=== PATIENT | male | born 1960 | race Hispanic/Latino ===

== ENCOUNTER 2016-07-20 22:11 | Emergency (ER) | payer MEDICAID ==
[2016-07-20 22:11] VITALS: BMI 25.0
[2016-07-20 22:27] VITALS: BP 138/85; PULSE 107; RESP 16; TEMP 98.2; O2SAT 100
--- NOTE | 2016-07-20 22:40 | ED PDOC ---
Lower Extremity Pain/Injury Time Seen by Provider: 07/20/16 22:31 Chief Complaint (Nursing): Lower Extremity Problem/Injury Chief Complaint (Provider): Redness/Swelling to RLE History Per: Patient History/Exam Limitations: no limitations Onset/Duration Of Symptoms: Days (x1 week), Worse Since (x2 days) Current Symptoms Are (Timing): Still Present Severity: Moderate Additional Complaint(s): landon Hudson is a 55 year old male, with a past medical history inclusive of HTN, cellulitis and osteomyelitis, who presents to the ED on 07/20/16 for the evaluation of moderate redness/swelling that he has noted to his right lower extremity x1 week which has worsened over the past 2 days. Associated drainage from an ulcer on his medial right ankle also reported, though patient denies fever/chills. PMD: Juani Sheldon Past Medical History Reviewed: Historical Data, Nursing Documentation, Vital Signs Vital Signs: Last Vital Signs Temp 98.2 F 07/20/16 22:24 Pulse 107 H 07/20/16 22:24 Resp 16 07/20/16 22:24 BP 138/85 07/20/16 22:24 Pulse Ox 100 07/20/16 22:24 - Medical History PMH: Anxiety, Back Problems (herniated disc), Bipolar Disorder, Depression, Hepatitis (C), HTN, Schizophrenia Denies: Diabetes, Fractures, HIV, Chronic Kidney Disease, Seizures, Sexually Transmitted Disease - Surgical History Surgical History: No Surg Hx - Family History Family History: States: CAD - Immunization History Hx Tetanus Toxoid Vaccination: Yes Hx Influenza Vaccination: Yes Hx Pneumococcal Vaccination: Yes - Home Medications Home Medications: Ambulatory Orders Medication Instructions Recorded Amoxicillin/Clavulanate [Augmentin 1 tab PO Q12 #19 tab 05/11/16 875 MG-125 MG] Naproxen [Naprosyn] 500 mg PO Q12 PRN #20 tablet 05/11/16 Cephalexin [cephalexin] 500 mg PO QID #28 cap 05/18/16 traMADol [Ultram] 50 mg PO Q6H PRN #8 tab 05/18/16 Clindamycin [Cleocin] 300 mg PO Q8 #30 cap 07/20/16 traMADol [Ultram] 50 mg PO Q8 #10 tab 07/20/16 - Allergies Allergies/Adverse Reactions: Allergies Allergy/AdvReac Type Severity Reaction Status Date / Time No Known Allergies Allergy Verified 07/20/16 22:24 Review of Systems ROS Statement: Except As Marked, All Systems Reviewed And Found Negative Constitutional: Negative for: Fever, Chills Musculoskeletal: Positive for: Leg Pain (redness/swelling to RLE w/drainage from ulcer on medial right ankle) Physical Exam - Reviewed Nursing Documentation Reviewed: Yes Vital Signs Reviewed: Yes - Physical Exam Appears: Positive for: Non-toxic, No Acute Distress Head Exam: Positive for: ATRAUMATIC, NORMOCEPHALIC Skin: Positive for: Normal Color, Warm, Dry Eye Exam: Positive for: Normal appearance, PERRL Cardiovascular/Chest: Positive for: Regular Rate, Rhythm. Negative for: Murmur Respiratory: Positive for: Normal Breath Sounds. Negative for: Respiratory Distress Pulses-Dorsalis Pedis (R): 2+ Pulses-Post. Tibialis (R): 2+ Extremity: Positive for: Normal ROM (FROM x4 extremities), Other (dried ulcer noted to right medial malleolus with surrounding erythema that extends to level of mid-martinez). Negative for: Deformity Neurologic/Psych: Positive for: Alert, Oriented - Laboratory Results Result Diagrams: 07/20/16 23:10 07/20/16 23:10 - ECG O2 Sat by Pulse Oximetry: 100 (RA) Pulse Ox Interpretation: Normal Medical Decision Making Medical Decision Makin:31 Initial Impression: cellulitis Initial Plan: * VBG Shock Panel * Labs * Blood Culture * Clindamycin IVPB * Reevaluation Scribe Attestation: Documented by Taya Barnett, acting as a scribe for Israel Navas MD. Provider Scribe Attestation: All medical record entries made by the Scribe were at my direction and personally dictated by me. I have reviewed the chart and agree that the record accurately reflects my personal performance of the history, physical exam, medical decision making, and the department course for this patient. I have also personally directed, reviewed, and agree with the discharge instructions and disposition. Disposition - Clinical Impression Clinical Impression: Cellulitis - Patient ED Disposition Is Patient to be Admitted: No Counseled Patient/Family Regarding: Studies Performed, Diagnosis, Need For Followup, Rx Given - Disposition Referrals: [facility] [Outside] Disposition: Routine/Home Disposition Time: 23:32 Condition: FAIR Prescriptions: Clindamycin [Cleocin] 300 mg PO Q8 #30 cap traMADol [Ultram] 50 mg PO Q8 #10 tab Instructions: Cellulitis (ED)
[2016-07-20 23:17] LABS: BASO # 0.1 K/uL (0.0-0.2); BASO % 0.8 % (0.0-2.0); EOS # 0.1 K/uL (0.0-0.7); EOS % 1.3 % (0.0-4.0); HEMATOCRIT 38.1 % (35.0-51.0); LYMPH # 1.1 K/uL (1.0-4.3); LYMPH % 15.1 % (20.0-40.0); MEAN CELL VOLUME 87.4 fl (80.0-94.0); MEAN CORPUSCULAR HGB CONC 34.3 g/dL (33.0-37.0); MEAN PLATELET VOLUME 8.2 fl (7.2-11.7); MONO # 0.5 K/uL (0.0-0.8); MONO % 7.5 % (0.0-10.0); NEUT # 5.2 K/uL (1.8-7.0); NEUT % 75.3 % (50.0-75.0); WHITE BLOOD COUNT 6.9 K/uL (4.8-10.8)
[2016-07-20 23:27] LABS: ALB/GLOB RATIO 1.2 (1.0-2.1); ALKALINE PHOSPHATASE 63 U/L (38-126); ALT/SGPT 18 U/L (21-72); AST/SGOT 35 U/L (17-59); BILIRUBIN,TOTAL 0.5 mg/dl (0.2-1.3); BLOOD UREA NITROGEN 13 mg/dl (9-20); CALCIUM 9.3 mg/dL (8.4-10.2); CARBON DIOXIDE 25 mmol/L (22-30); CHLORIDE 104 mmol/L (98-107); GFR AFRICAN-AMERICAN > 60; GLUCOSE,RANDOM 117 mg/dL (75-110); POTASSIUM 4.5 MMOL/L (3.6-5.0); SODIUM 145 mmol/l (132-148); TOTAL PROTEIN 7.9 G/DL (6.3-8.2)
== END 2016-07-21 00:37 | disposition home or self-care (01) ==
LOC: H.ER 22:11
DX: L03.90 Cellulitis, unspecified (principal); F20.9 Schizophrenia, unspecified; F31.9 Bipolar disorder, unspecified; F41.9 Anxiety disorder, unspecified; I10 Essential (primary) hypertension

== ENCOUNTER 2016-08-06 07:11 | Observation (INO) | payer MEDICAID ==
[2016-08-06 07:11] VITALS: BMI 25.0
[2016-08-06] MEDS ORDERED: Naloxone 0.4 mg/ml Inj (Adult) ONE (07:23)
--- NOTE | 2016-08-06 07:44 | ED PDOC ---
HPI: Psych/Substance Abuse Time Seen by Provider: 08/06/16 07:21 Chief Complaint (Nursing): Substance Abuse Chief Complaint (Provider): Substance Abuse, Altered Mental Status ED Caveat: Altered Mental Status History Per: Patient History/Exam Limitations: other (secondary to substance abuse) Onset/Duration Of Symptoms: Hrs (4 hours ago) Current Symptoms Are (Timing): Still Present Modifying Factor(s): Narcotics (oxycodone) Severity: Moderate Additional History Per: EMS Additional Complaint(s): Aashish Hudson is a 55 year old male, with a past medical history of known substance abuse, hypertension, anxiety, bipolar disorder, depression, and schizophrenia, who presents to the emergency department via EMS due to abuse of Oxycodone, that the patient admits to abusing at 03:00 on 08/06/2016. EMS reports that [facility] called due to patient's altered status. The HPI/ROS are limited due to substance abuse; however, provider notes that the patient is somnolent with pinpoint pupils. Of note, patient is well known to the emergency department and this provider. Patient's immunization records are up to date. PMD: none specified Past Medical History Reviewed: Historical Data, Nursing Documentation, Vital Signs Vital Signs: Last Vital Signs Temp 98.9 F 08/06/16 07:35 Pulse 101 H 08/06/16 07:35 Resp 86 H 08/06/16 07:35 BP 115/64 08/06/16 07:35 Pulse Ox 98 08/06/16 07:35 - Medical History PMH: Anxiety, Back Problems (herniated disc), Bipolar Disorder, Depression, Hepatitis (C), HTN, Schizophrenia Denies: Diabetes, Fractures, HIV, Chronic Kidney Disease, Seizures, Sexually Transmitted Disease - Surgical History Surgical History: No Surg Hx - Family History Family History: States: CAD - Living Arrangements Living Arrangements: [facility] ([facility]) - Social History Current smoker - smoking cessation education provided: Yes Alcohol: Occasional Drugs: Prescription medications (oxycodone) - Immunization History Hx Tetanus Toxoid Vaccination: Yes Hx Influenza Vaccination: Yes Hx Pneumococcal Vaccination: Yes - Home Medications Home Medications: Ambulatory Orders Medication Instructions Recorded LORazepam [Ativan] 1 mg PO DAILY 07/22/16 QUEtiapine [SEROquel] 300 mg PO HS 07/22/16 Albuterol 0.083% [Albuterol 0.083% 2.5 mg IH Q6H PRN #15 neb 07/29/16 Inhal Naz (2.5 mg/3 ml) UD] oxyCODONE/Acetaminophen [Percocet 1 tab PO Q6H PRN #15 tab 07/29/16 5/325 mg Tab] - Allergies Allergies/Adverse Reactions: Allergies Allergy/AdvReac Type Severity Reaction Status Date / Time No Known Allergies Allergy Verified 07/22/16 16:29 Review of Systems Review Of Systems: ROS cannot be obtained secondary to pt's inabilty to answer questions. (secondary to substance abuse) Eyes: Positive for: Other (pinpoint pupils) Neurological: Positive for: Altered Mental Status, Other (somnolent) Physical Exam - Reviewed Nursing Documentation Reviewed: Yes Vital Signs Reviewed: Yes - Physical Exam Appears: Positive for: No Acute Distress Head Exam: Positive for: ATRAUMATIC, NORMOCEPHALIC Skin: Positive for: Normal Color, Warm Eye Exam: Positive for: Normal appearance, EOMI, PERRL, Other (pupils are constricted b/l) Cardiovascular/Chest: Positive for: Regular Rate, Rhythm. Negative for: Murmur Respiratory: Positive for: Normal Breath Sounds. Negative for: Respiratory Distress Extremity: Positive for: Normal ROM, Other (lower extremities show chronic cellulitis). Negative for: Tenderness Neurologic/Psych: Negative for: Alert (arousable only to deep external rub), Oriented - ECG O2 Sat by Pulse Oximetry: 98 (RA) Pulse Ox Interpretation: Normal Medical Decision Making Medical Decision Makin:21 Initial Impression: substance abuse Initial Plan: * Alcohol Serum * CBC * BMP * Urine Drug Screen * Acetaminophen * Salicylate * Narcan 0.4 mg IVP * 1:1 Observation * ED Observation 07:30 Patient was administered Narcan 4 mg IVP, woke up completely, admit to taking Oxycodone in the middle of the night. Patient is no longer hypoxic and pupils are 3-4 ml bilaterally. 07:40 Patient presents a danger to both himself and emergency department staff due to aggressive behavior, and is attempting to elope from the ED. Will place patient into physical restraints. 07:55 Patient will be placed within ED Observation secondary to substance abuse. Pending clinical sobriety. See Observation note for further updates. 08:27 Upon provider reevaluation patient is awake, alert, and oriented, is medically stable, and requires no further treatment in the emergency department at this time. Patient will be discharged home. Counseling was provided and all questions were answered regarding diagnosis. Patient is in agreement with provider's discharge plan. Clinical Impression: substance abuse Scribe Attestation: Documented by Uziel Smith, acting as a scribe for Raz Francisco MD. Provider Scribe Attestation: All medical record entries made by the Scribe were at my direction and personally dictated by me. I have reviewed the chart and agree that the record accurately reflects my personal performance of the history, physical exam, medical decision making, and the department course for this patient. I have also personally directed, reviewed, and agree with the discharge instructions and disposition. ED OBSERVATION Discharge: Yes Date of observation admission: 08/06/16 Time of observation admission: 07:55 - Observation admission statement Patient is being placed in observation because:: Secondary to substance abuse. - Goals of Observation Goals of observation are:: Pending clinical sobriety. Disposition - Clinical Impression Clinical Impression: Drug abuse - Patient ED Disposition Is Patient to be Admitted: Yes Counseled Patient/Family Regarding: Studies Performed, Diagnosis - Disposition Disposition: Routine/Home Disposition Time: 08:27 Condition: STABLE
[2016-08-06 07:45] VITALS: TEMP 98.9; O2SAT 98
[2016-08-06] MEDS ORDERED: Naloxone 0.4 mg/ml Inj (Adult) IVP STA (07:56)
[2016-08-06 08:22] LABS: BASO # 0.1 K/uL (0.0-0.2); BASO % 1.3 % (0.0-2.0); EOS # 0.7 K/uL (0.0-0.7); HEMATOCRIT 39.1 % (35.0-51.0); LYMPH # 2.9 K/uL (1.0-4.3); LYMPH % 32.4 % (20.0-40.0); MEAN CELL VOLUME 88.7 fl (80.0-94.0); MEAN CORPUSCULAR HEMOGLOBIN 29.8 pg (27.0-31.0); MEAN CORPUSCULAR HGB CONC 33.6 g/dL (33.0-37.0); MEAN PLATELET VOLUME 8.1 fl (7.2-11.7); MONO # 0.8 K/uL (0.0-0.8); MONO % 8.4 % (0.0-10.0); NEUT # 4.5 K/uL (1.8-7.0); NEUT % 49.9 % (50.0-75.0); RED CELL DISTRIBUTION WIDTH 13.9 % (11.5-14.5)
[2016-08-06 08:35] VITALS: BP 121/75; PULSE 90; RESP 16
[2016-08-06 08:43] LABS: ALCOHOL SERUM < 10 mg/dl (0-10); BLOOD UREA NITROGEN 15 mg/dl (9-20); CARBON DIOXIDE 27 mmol/L (22-30); CHLORIDE 107 mmol/L (98-107); GFR AFRICAN-AMERICAN > 60; GLUCOSE,RANDOM 123 mg/dL (75-110); POTASSIUM 3.9 MMOL/L (3.6-5.0); SODIUM 142 mmol/l (132-148)
== END 2016-08-06 08:39 | disposition home or self-care (01) ==
LOC: EDBD → H.ER 07:11 → H.EROBSV 07:55
PROVIDERS: ADMIT Emergency Medicine; ATTEND Emergency Medicine
DX: F11.10 Opioid abuse, uncomplicated (principal); F20.9 Schizophrenia, unspecified; F31.9 Bipolar disorder, unspecified; I10 Essential (primary) hypertension; F41.9 Anxiety disorder, unspecified; R40.0 Somnolence; B19.20 Unspecified viral hepatitis C without hepatic coma

== ENCOUNTER 2016-08-06 23:26 | Emergency (ER) | payer MEDICAID ==
[2016-08-06 23:27] VITALS: BMI 25.0
[2016-08-06 23:49] VITALS: BP 118/85; PULSE 98; RESP 17; TEMP 97.7; O2SAT 98
--- NOTE | 2016-08-07 01:05 | ED PDOC ---
Lower Extremity Pain/Injury Time Seen by Provider: 08/07/16 00:06 Chief Complaint (Nursing): Abdominal Pain Chief Complaint (Provider): right leg pain History Per: Patient History/Exam Limitations: no limitations Onset/Duration Of Symptoms: Hrs Current Symptoms Are (Timing): Still Present Additional Complaint(s): 55yo male presents to the ED with c/o right leg pain. Patient reports being recently admitted for 6 days and discharged with improvement of RLE dermatitis and ulcers. Patient was at pharmacy picking up new Rx and pharmacist told him he should be evaluated. Patient further reports some pain with urinating and urinary frequency x3 days. No vomiting, fever, or any other medical complaints. Of note, patient was being administered zosyn and vancomycin in the hospital and multiple doses of dilaudid and morphine. Past Medical History Reviewed: Historical Data, Nursing Documentation, Vital Signs Vital Signs: Last Vital Signs Temp 97.7 F 08/06/16 23:44 Pulse 98 H 08/06/16 23:44 Resp 17 08/06/16 23:44 BP 118/85 08/06/16 23:44 Pulse Ox 98 08/06/16 23:44 - Medical History PMH: Anxiety, Back Problems (herniated disc), Bipolar Disorder, Depression, Hepatitis (C), HTN, Schizophrenia Denies: Diabetes, Fractures, HIV, Chronic Kidney Disease, Seizures, Sexually Transmitted Disease - Surgical History Surgical History: No Surg Hx - Family History Family History: States: Unknown Family Hx, CAD - Immunization History Hx Tetanus Toxoid Vaccination: Yes Hx Influenza Vaccination: Yes Hx Pneumococcal Vaccination: Yes - Home Medications Home Medications: Ambulatory Orders Medication Instructions Recorded LORazepam [Ativan] 1 mg PO DAILY 07/22/16 QUEtiapine [SEROquel] 300 mg PO HS 07/22/16 Albuterol 0.083% [Albuterol 0.083% 2.5 mg IH Q6H PRN #15 neb 07/29/16 Inhal Naz (2.5 mg/3 ml) UD] oxyCODONE/Acetaminophen [Percocet 1 tab PO Q6H PRN #15 tab 07/29/16 5/325 mg Tab] - Allergies Allergies/Adverse Reactions: Allergies Allergy/AdvReac Type Severity Reaction Status Date / Time No Known Allergies Allergy Verified 07/22/16 16:29 Review of Systems ROS Statement: Except As Marked, All Systems Reviewed And Found Negative Constitutional: Negative for: Fever Gastrointestinal: Negative for: Vomiting Genitourinary Male: Positive for: Dysuria, Frequency Musculoskeletal: Positive for: Leg Pain (right ) Physical Exam - Reviewed Nursing Documentation Reviewed: Yes Vital Signs Reviewed: Yes - Physical Exam Appears: Positive for: Well, No Acute Distress Head Exam: Positive for: ATRAUMATIC, NORMAL INSPECTION, NORMOCEPHALIC Skin: Positive for: Warm, Dry Eye Exam: Positive for: Normal appearance Extremity: Positive for: Normal ROM, Other (RLE: dermatitis and 2 healing ulcers , no discharge ). Negative for: Tenderness, Deformity, Swelling Neurologic/Psych: Positive for: Alert, Oriented - ECG O2 Sat by Pulse Oximetry: 98 Pulse Ox Interpretation: Normal (RA) Medical Decision Making Medical Decision Makin: Impression: chronic RLE dermatitis and 2 healing ulcers, dysuria and urinary frequency Plan: urine dip reassess Patient instructed to continue antibiotics and f/u w/ senior quality methods specialist tomorrow. Scribe Attestation: Documented by Cha Barton acting as a scribe for Ashley Ye MD. Provider Scribe Attestation: All medical record entries made by the Scribe were at my direction and personally dictated by me. I have reviewed the chart and agree that the record accurately reflects my personal performance of the history, physical exam, medical decision making, and the department course for this patient. I have also personally directed, reviewed, and agree with the discharge instructions and disposition. Disposition - Clinical Impression Clinical Impression: Stasis ulcer of right lower extremity - Patient ED Disposition Is Patient to be Admitted: No - Disposition Referrals: Aashish Ricketts MD [Non-Staff] - Disposition: Routine/Home Disposition Time: 01:23 Condition: GOOD Additional Instructions: Follow up with your senior quality methods specialist tomorrow. Continue taking your medications as instructed. Instructions: Chronic Wound Care (ED)
== END 2016-08-07 01:24 | disposition home or self-care (01) ==
LOC: EDBD → H.ER 23:26
DX: I87.311 Chronic venous hypertension (idiopathic) with ulcer of right lower extremity (principal); F20.9 Schizophrenia, unspecified; F31.9 Bipolar disorder, unspecified; F41.9 Anxiety disorder, unspecified; I10 Essential (primary) hypertension; L30.9 Dermatitis, unspecified

== ENCOUNTER 2016-08-10 06:55 | Observation (INO) | payer MEDICAID ==
[2016-08-10 06:55] VITALS: BMI 25.0
[2016-08-10 07:30] VITALS: TEMP 98.1
--- NOTE | 2016-08-10 08:16 | ED PDOC ---
Lower Extremity Pain/Injury Time Seen by Provider: 08/10/16 07:49 Chief Complaint (Nursing): Lower Extremity Problem/Injury Chief Complaint (Provider): Chronic Right leg pain History Per: Patient History/Exam Limitations: no limitations Onset/Duration Of Symptoms: Unknown Current Symptoms Are (Timing): Still Present Severity: Mild Additional Complaint(s): Patient is a 55 year old male, who has a history of right lower leg pain, presents to the ED complaining of right lower leg pain. Patient is well known to the ED for multiple visits and reports multiple visits for the same complaint. Patient has a Rx for Percocet by his doctors and took 2 this morning. Patient is sleeping now. Patient also has a history of ulcers to his right lower extremity. Denies any new pain or complaints PMD: none Past Medical History Reviewed: Historical Data, Nursing Documentation, Vital Signs Vital Signs: Last Vital Signs Temp 98.1 F 08/10/16 07:15 Pulse 87 08/10/16 07:15 Resp 16 08/10/16 07:15 BP 143/84 08/10/16 07:15 Pulse Ox 98 08/10/16 07:15 - Medical History PMH: Anxiety, Back Problems (herniated disc), Bipolar Disorder, Depression, Hepatitis (C), HTN, Schizophrenia Denies: Diabetes, Fractures, HIV, Chronic Kidney Disease, Seizures, Sexually Transmitted Disease - Family History Family History: States: Unknown Family Hx, CAD - Immunization History Hx Tetanus Toxoid Vaccination: Yes Hx Influenza Vaccination: Yes Hx Pneumococcal Vaccination: Yes - Home Medications Home Medications: Ambulatory Orders Medication Instructions Recorded LORazepam [Ativan] 1 mg PO DAILY 07/22/16 QUEtiapine [SEROquel] 300 mg PO HS 07/22/16 Albuterol 0.083% [Albuterol 0.083% 2.5 mg IH Q6H PRN #15 neb 07/29/16 Inhal Naz (2.5 mg/3 ml) UD] oxyCODONE/Acetaminophen [Percocet 1 tab PO Q6H PRN #15 tab 07/29/16 5/325 mg Tab] Ondansetron ODT [Zofran ODT] 4 mg PO Q8 PRN #12 odt 08/10/16 - Allergies Allergies/Adverse Reactions: Allergies Allergy/AdvReac Type Severity Reaction Status Date / Time No Known Allergies Allergy Verified 08/10/16 07:32 Review of Systems ROS Statement: Except As Marked, All Systems Reviewed And Found Negative Constitutional: Negative for: Fever Musculoskeletal: Positive for: Leg Pain (right) Physical Exam - Reviewed Nursing Documentation Reviewed: Yes Vital Signs Reviewed: Yes - Physical Exam Appears: Positive for: Well (asleep but easily arousable), Non-toxic, No Acute Distress Head Exam: Positive for: ATRAUMATIC, NORMAL INSPECTION, NORMOCEPHALIC Skin: Positive for: Normal Color, Warm Eye Exam: Positive for: Normal appearance, EOMI Neck: Positive for: Normal, Painless ROM Cardiovascular/Chest: Positive for: Regular Rate, Rhythm. Negative for: Tachycardia Respiratory: Positive for: Normal Breath Sounds. Negative for: Wheezing, Respiratory Distress Gastrointestinal/Abdominal: Positive for: Soft, Tenderness (epigastric). Negative for: Distended Extremity: Positive for: Normal ROM, Other (rt lower leg 1 cm chronic wound cover with scar no discharge superficial ulcer of right foot no discharge no redness no swelling no tend on palpation Chronic statis dermatitis of rt lower leg) Neurologic/Psych: Positive for: Alert, Oriented - Laboratory Results Result Diagrams: 08/10/16 11:15 08/10/16 11:15 - ECG O2 Sat by Pulse Oximetry: 98 (RA) Pulse Ox Interpretation: Normal Medical Decision Making Medical Decision Making: Time: 7;50 Impression: Chronic Right Lower Leg Pain v chronic Pain syndrome Opiate Abuse Vomiting Plan: explained to patient that he will not receive any opiates due to the fact he takes percocets already and his history of abuse. Patient understands.. Labs CT abdomen PROCEDURE: CT Abdomen and Pelvis with contrast HISTORY: vomiting abdominal pain COMPARISON: Comparison is made to the previous study dated 01/14/2016 TECHNIQUE: Axial and reformatted coronal and sagittal CT images of the abdomen and pelvis were obtained after IV contrast administration. Contrast dose: 95 mL Omnipaque 300 Radiation dose: Total exam DLP = 1096.67 mGy-cm. This CT exam was performed using one or more of the following dose reduction techniques: Automated exposure control, adjustment of the mA and/or kV according to patient size, and/or use of iterative reconstruction technique. FINDINGS: LOWER THORAX: Small opacities at the right lung base may represent atelectasis or less likely pneumonia. LIVER: No evidence of acute pathology in the liver. GALLBLADDER AND BILE DUCTS: Unremarkable. PANCREAS: Unremarkable. No gross lesion or ductal dilatation. SPLEEN: Unremarkable. ADRENALS: Unremarkable. No mass. KIDNEYS AND URETERS: The kidneys enhance symmetrically. Again seen cystic lesion at the right kidney measures 1.3 centimeter. There is nonobstructing calculus at the lower pole of the left kidney measures 7 millimeter. No evidence of hydronephrosis. VASCULATURE: Unremarkable. No aortic aneurysm. BOWEL: Unremarkable. No obstruction. No gross mural thickening. Mild constipation is noted. APPENDIX: Normal appendix. PERITONEUM: Unremarkable. No free fluid. No free air. LYMPH NODES: Mildly enlarged right groin lymph node is noted measures 2.1 centimeter. No evidence of significant retroperitoneal lymphadenopathy. BLADDER: Unremarkable. REPRODUCTIVE: Mildly enlarged prostate. BONES: Moderate to mildly severe degenerative changes at the lower spine. There are subacute fractures at the left lower posterior ribs. OTHER FINDINGS: None. IMPRESSION: Nonobstructing left renal calculus. No evidence of hydronephrosis. No CT evidence of cholecystitis pancreatitis or appendicitis. Mildly enlarged right groin lymph node measures 2.1 centimeter. Mildly enlarged prostate. Small opacity at the right lung base may represent atelectasis. Subacute fractures at the left lower posterior ribs correlate clinically for recent trauma. Scribe Attestation: Documented by Marita Neumann acting as a scribe for Ashley Ye MD. Scribe Attestation: All medical record entries made by the Scribe were at my direction and personally dictated by me. I have reviewed the chart and agree that the record accurately reflects my personal performance of the history, physical exam, medical decision making, and the department course for this patient. I have also personally directed, reviewed, and agree with the discharge instructions and disposition. ED OBSERVATION Discharge: Yes Date of observation admission: 08/10/16 Time of observation admission: 14:24 - Observation admission statement Patient is being placed in observation because:: monitor leg pain until results diagnosis intractable vomiting and substance abuse - Goals of Observation Goals of observation are:: monitor leg pain until results diagnosis intractable vomiting and substance abuse Disposition - Clinical Impression Clinical Impression: Drug abuse, Stasis ulcer of right lower extremity, Vomiting - Patient ED Disposition Is Patient to be Admitted: No Doctor Will See Patient In The: Office Counseled Patient/Family Regarding: Studies Performed, Diagnosis, Need For Followup - Disposition Disposition: Routine/Home Disposition Time: 16:30 Condition: GOOD
[2016-08-10] MEDS ORDERED: Sodium Chloride 0.9% 1,000 ML IV STA (11:02)
[2016-08-10 11:26] LABS: BASO % 0.6 % (0.0-2.0); EOS # 0.1 K/uL (0.0-0.7); EOS % 1.7 % (0.0-4.0); HEMATOCRIT 39.1 % (35.0-51.0); LYMPH # 1.7 K/uL (1.0-4.3); LYMPH % 21.9 % (20.0-40.0); MEAN CELL VOLUME 88.4 fl (80.0-94.0); MEAN CORPUSCULAR HEMOGLOBIN 29.8 pg (27.0-31.0); MEAN CORPUSCULAR HGB CONC 33.7 g/dL (33.0-37.0); MONO # 0.6 K/uL (0.0-0.8); MONO % 7.6 % (0.0-10.0); NEUT # 5.2 K/uL (1.8-7.0); NEUT % 68.2 % (50.0-75.0); RED CELL DISTRIBUTION WIDTH 14.1 % (11.5-14.5); WHITE BLOOD COUNT 7.6 K/uL (4.8-10.8)
[2016-08-10 11:29] LABS: CHLORIDE 100 mmol/L (98-107)
[2016-08-10 11:30] LABS: SODIUM 139 mmol/l (132-148)
[2016-08-10 11:33] LABS: ALB/GLOB RATIO 1.1 (1.0-2.1); ALKALINE PHOSPHATASE 73 U/L (38-126); ALT/SGPT 32 U/L (21-72); AST/SGOT 36 U/L (17-59); BILIRUBIN,TOTAL 0.4 mg/dl (0.2-1.3); BLOOD UREA NITROGEN 10 mg/dl (9-20); CARBON DIOXIDE 32 mmol/L (22-30); GFR AFRICAN-AMERICAN > 60; GLUCOSE,RANDOM 144 mg/dL (75-110); TOTAL PROTEIN 7.8 G/DL (6.3-8.2)
[2016-08-10 11:34] LABS: ALCOHOL SERUM < 10 mg/dl (0-10); CALCIUM 8.8 mg/dL (8.4-10.2); LIPASE 55 U/L (23-300)
[2016-08-10 11:37] LABS: POTASSIUM 5.4 MMOL/L (3.6-5.0)
[2016-08-10] MEDS ORDERED: Sodium Chloride 0.9% 50 ML IV ONE (14:34)
[2016-08-10] MEDS ORDERED: Iohexol 300 100 ML IJ ONE (14:34)
--- NOTE | 2016-08-10 15:48 | CT ---
PROCEDURE: CT Abdomen and Pelvis with contrast HISTORY: vomiting abdominal pain COMPARISON: Comparison is made to the previous study dated 01/14/2016 TECHNIQUE: Axial and reformatted coronal and sagittal CT images of the abdomen and pelvis were obtained after IV contrast administration. Contrast dose: 95 mL Omnipaque 300 Radiation dose: Total exam DLP = 1096.67 mGy-cm. This CT exam was performed using one or more of the following dose reduction techniques: Automated exposure control, adjustment of the mA and/or kV according to patient size, and/or use of iterative reconstruction technique. FINDINGS: LOWER THORAX: Small opacities at the right lung base may represent atelectasis or less likely pneumonia. LIVER: No evidence of acute pathology in the liver. GALLBLADDER AND BILE DUCTS: Unremarkable. PANCREAS: Unremarkable. No gross lesion or ductal dilatation. SPLEEN: Unremarkable. ADRENALS: Unremarkable. No mass. KIDNEYS AND URETERS: The kidneys enhance symmetrically. Again seen cystic lesion at the right kidney measures 1.3 centimeter. There is nonobstructing calculus at the lower pole of the left kidney measures 7 millimeter. No evidence of hydronephrosis. VASCULATURE: Unremarkable. No aortic aneurysm. BOWEL: Unremarkable. No obstruction. No gross mural thickening. Mild constipation is noted. APPENDIX: Normal appendix. PERITONEUM: Unremarkable. No free fluid. No free air. LYMPH NODES: Mildly enlarged right groin lymph node is noted measures 2.1 centimeter. No evidence of significant retroperitoneal lymphadenopathy. BLADDER: Unremarkable. REPRODUCTIVE: Mildly enlarged prostate. BONES: Moderate to mildly severe degenerative changes at the lower spine. There are subacute fractures at the left lower posterior ribs. OTHER FINDINGS: None. IMPRESSION: Nonobstructing left renal calculus. No evidence of hydronephrosis. No CT evidence of cholecystitis pancreatitis or appendicitis. Mildly enlarged right groin lymph node measures 2.1 centimeter. Mildly enlarged prostate. Small opacity at the right lung base may represent atelectasis. Subacute fractures at the left lower posterior ribs correlate clinically for recent trauma.
[2016-08-10 20:02] VITALS: BP 112/70; PULSE 71; RESP 18
[2016-08-14 21:20] VITALS: O2SAT 98
== END 2016-08-10 16:30 | disposition home or self-care (01) ==
LOC: EDBD → H.ER 06:55 → H.EROBSV 14:24
PROVIDERS: ADMIT Emergency Medicine; ATTEND Emergency Medicine
DX: F11.10 Opioid abuse, uncomplicated (principal); I87.2 Venous insufficiency (chronic) (peripheral); F20.9 Schizophrenia, unspecified; I10 Essential (primary) hypertension; F31.9 Bipolar disorder, unspecified; F41.9 Anxiety disorder, unspecified; B19.20 Unspecified viral hepatitis C without hepatic coma

== ENCOUNTER 2016-09-02 20:21 | Emergency (ER) | payer MEDICAID ==
[2016-09-02 20:21] VITALS: BMI 25.0
[2016-09-02 21:15] VITALS: BP 145/94; PULSE 85; RESP 16; TEMP 98.5; O2SAT 96
--- NOTE | 2016-09-02 23:13 | ED PDOC ---
HPI: Psych/Substance Abuse Time Seen by Provider: 09/02/16 21:12 Chief Complaint (Nursing): Psychiatric Evaluation Chief Complaint (Provider): SI with plan History Per: Patient History/Exam Limitations: no limitations Onset/Duration Of Symptoms: Days Current Symptoms Are (Timing): Still Present Additional Complaint(s): Pt reports SI with drake to take all his medications. PT reports history of anxiety and depression and states it has been worse for a few days. Past Medical History Reviewed: Historical Data, Nursing Documentation, Vital Signs Vital Signs: Last Vital Signs Temp 98.5 F 09/02/16 21:12 Pulse 85 09/02/16 21:12 Resp 16 09/02/16 21:12 BP 145/94 H 09/02/16 21:12 Pulse Ox 96 09/02/16 21:12 - Medical History PMH: Anxiety, Back Problems (herniated disc), Bipolar Disorder, Depression, Hepatitis (C), HTN, Schizophrenia Denies: Diabetes, Fractures, HIV, Chronic Kidney Disease, Seizures, Sexually Transmitted Disease - Surgical History Surgical History: No Surg Hx - Family History Family History: States: Unknown Family Hx, CAD - Living Arrangements Living Arrangements: With Family - Social History Current smoker - smoking cessation education provided: Yes Alcohol: Occasional Drugs: Denies - Immunization History Hx Tetanus Toxoid Vaccination: Yes Hx Influenza Vaccination: Yes Hx Pneumococcal Vaccination: Yes - Home Medications Home Medications: Ambulatory Orders Medication Instructions Recorded LORazepam [Ativan] 1 mg PO DAILY 07/22/16 QUEtiapine [SEROquel] 300 mg PO HS 07/22/16 Albuterol 0.083% [Albuterol 0.083% 2.5 mg IH Q6H PRN #15 neb 07/29/16 Inhal Naz (2.5 mg/3 ml) UD] oxyCODONE/Acetaminophen [Percocet 1 tab PO Q6H PRN #15 tab 07/29/16 5/325 mg Tab] Ondansetron ODT [Zofran ODT] 4 mg PO Q8 PRN #12 odt 08/10/16 - Allergies Allergies/Adverse Reactions: Allergies Allergy/AdvReac Type Severity Reaction Status Date / Time No Known Allergies Allergy Verified 09/02/16 21:12 Review of Systems ROS Statement: Except As Marked, All Systems Reviewed And Found Negative Psych: Positive for: Anxiety, Depression, Suicidal ideation Physical Exam - Reviewed Nursing Documentation Reviewed: Yes Vital Signs Reviewed: Yes - Physical Exam Appears: Positive for: Well, Non-toxic, No Acute Distress Head Exam: Positive for: ATRAUMATIC, NORMAL INSPECTION, NORMOCEPHALIC Skin: Positive for: Normal Color, Warm, DRY Eye Exam: Positive for: Normal appearance ENT: Positive for: Normal ENT Inspection Neck: Positive for: Normal, Painless ROM Cardiovascular/Chest: Positive for: Regular Rate, Rhythm Respiratory: Positive for: CNT, Normal Breath Sounds Gastrointestinal/Abdominal: Positive for: Normal Exam, Bowel Sounds, Soft Back: Positive for: Normal Inspection Extremity: Positive for: Normal ROM Neurologic/Psych: Positive for: Alert, Oriented, Mood/Affect - ECG O2 Sat by Pulse Oximetry: 96 Medical Decision Making Medical Decision Making: Crisis evaluation completed. Psychiatrist would like labs and drug screen on patient. Disposition - Clinical Impression Clinical Impression: Suicidal ideation - Patient ED Disposition Is Patient to be Admitted: Transfer of Care - Disposition Disposition: Transfer of Care Disposition Time: 23:12 Condition: GOOD
[2016-09-02 23:26] LABS: HEMATOCRIT 38.9 % (35.0-51.0); MEAN CELL VOLUME 87.6 fl (80.0-94.0); MEAN CORPUSCULAR HEMOGLOBIN 29.3 pg (27.0-31.0); MEAN CORPUSCULAR HGB CONC 33.5 g/dL (33.0-37.0); RED CELL DISTRIBUTION WIDTH 13.9 % (11.5-14.5); WHITE BLOOD COUNT 8.8 K/uL (4.8-10.8)
[2016-09-02 23:36] LABS: ALB/GLOB RATIO 1.4 (1.0-2.1); ALCOHOL SERUM < 10 mg/dl (0-10); ALKALINE PHOSPHATASE 71 U/L (38-126); ALT/SGPT 35 U/L (21-72); AST/SGOT 34 U/L (17-59); BILIRUBIN,TOTAL 0.9 mg/dl (0.2-1.3); BLOOD UREA NITROGEN 20 mg/dl (9-20); CALCIUM 9.3 mg/dL (8.4-10.2); CARBON DIOXIDE 26 mmol/L (22-30); CHLORIDE 100 mmol/L (98-107); GFR AFRICAN-AMERICAN > 60; GLUCOSE,RANDOM 95 mg/dL (75-110); POTASSIUM 4.1 MMOL/L (3.6-5.0); SODIUM 137 mmol/l (132-148); TOTAL PROTEIN 7.7 G/DL (6.3-8.2)
--- NOTE | 2016-09-02 23:51 | ED PDOC ---
- Laboratory Results Result Diagrams: 09/02/16 23:19 09/02/16 23:19 - ECG O2 Sat by Pulse Oximetry: 96 Medical Decision Making Medical Decision Making: Case endorsed to fiction and nonfiction prose writer from INDIO Varela at midnight pending crisis eval UDS resulted (+) Opiates and cocaine Pt underwent crisis eval, stable for discharge: DX: Anxiety Disposition - Clinical Impression Clinical Impression: Anxiety, Substance abuse - POA Present On Arrival: None - Disposition Disposition: Routine/Home Disposition Time: 01:05 Condition: GOOD Instructions: Anxiety (ED)
[2016-09-03 00:30] LABS: RBC URINE 2 /hpf (0-3); URINE BILIRUBIN NEGATIVE (NEGATIVE); URINE BLOOD NEGATIVE (NEGATIVE); URINE COLOR YELLOW (YELLOW); URINE GLUCOSE (UA) NEG (Normal); URINE KETONE NEGATIVE (NEGATIVE); URINE LEUKOCYTE ESTERASE NEG Leu/uL (Negative); URINE PROTEIN NEGATIVE (NEGATIVE); URINE UROBILINOGEN 0.2-1.0 mg/dL (0.2-1.0); WBC URINE 1 /hpf (0-5)
== END 2016-09-03 01:34 | disposition home or self-care (01) ==
LOC: H.ER 20:21
DX: F41.9 Anxiety disorder, unspecified (principal); F19.10 Other psychoactive substance abuse, uncomplicated; F17.200 Nicotine dependence, unspecified, uncomplicated; F20.9 Schizophrenia, unspecified; F31.9 Bipolar disorder, unspecified; I10 Essential (primary) hypertension; R45.851 Suicidal ideations

== ENCOUNTER 2016-09-08 20:37 | Emergency (ER) | payer MEDICAID ==
[2016-09-08 20:37] VITALS: BMI 25.0
[2016-09-08 20:43] VITALS: BP 115/67; PULSE 85; RESP 16; TEMP 98.2; O2SAT 99
--- NOTE | 2016-09-08 22:54 | ED PDOC ---
HPI: Psych/Substance Abuse Time Seen by Provider: 09/08/16 21:00 Chief Complaint (Nursing): Alcohol Ingestion Chief Complaint (Provider): alcohol ingestion History Per: Patient (55 y/o male here for evaluation of alcohol ingestion. Patient denies any complaints. Denies any etoh/drug intake.) Past Medical History Reviewed: Historical Data, Nursing Documentation, Vital Signs Vital Signs: Last Vital Signs Temp 98.2 F 09/08/16 20:41 Pulse 85 09/08/16 20:41 Resp 16 09/08/16 20:41 BP 115/67 09/08/16 20:41 Pulse Ox 99 09/08/16 20:41 - Medical History PMH: Anxiety, Back Problems (herniated disc), Bipolar Disorder, Depression, Hepatitis (C), HTN, Schizophrenia Denies: Diabetes, Fractures, HIV, Chronic Kidney Disease, Seizures, Sexually Transmitted Disease - Family History Family History: States: Unknown Family Hx, CAD - Immunization History Hx Tetanus Toxoid Vaccination: Yes Hx Influenza Vaccination: Yes Hx Pneumococcal Vaccination: Yes - Home Medications Home Medications: Ambulatory Orders Medication Instructions Recorded LORazepam [Ativan] 1 mg PO DAILY 07/22/16 QUEtiapine [SEROquel] 300 mg PO HS 07/22/16 Albuterol 0.083% [Albuterol 0.083% 2.5 mg IH Q6H PRN #15 neb 07/29/16 Inhal Naz (2.5 mg/3 ml) UD] oxyCODONE/Acetaminophen [Percocet 1 tab PO Q6H PRN #15 tab 07/29/16 5/325 mg Tab] Ondansetron ODT [Zofran ODT] 4 mg PO Q8 PRN #12 odt 08/10/16 - Allergies Allergies/Adverse Reactions: Allergies Allergy/AdvReac Type Severity Reaction Status Date / Time No Known Allergies Allergy Verified 09/08/16 20:40 Review of Systems ROS Statement: Except As Marked, All Systems Reviewed And Found Negative Physical Exam - Reviewed Nursing Documentation Reviewed: Yes Vital Signs Reviewed: Yes - Physical Exam Appears: Positive for: Well (Patient alert but not oriented to self/place, slight slurred speech noted.), Non-toxic, No Acute Distress Head Exam: Positive for: ATRAUMATIC, NORMAL INSPECTION, NORMOCEPHALIC Skin: Positive for: Normal Color, Warm, DRY Eye Exam: Positive for: EOMI, Normal appearance, PERRL ENT: Positive for: Normal ENT Inspection Neck: Positive for: Normal, Painless ROM Cardiovascular/Chest: Positive for: Regular Rate, Rhythm Respiratory: Positive for: CNT, Normal Breath Sounds Gastrointestinal/Abdominal: Positive for: Normal Exam, Bowel Sounds, Soft Back: Positive for: Normal Inspection Extremity: Positive for: Normal ROM Neurologic/Psych: Positive for: Alert, Oriented - ECG O2 Sat by Pulse Oximetry: 99 - Progress ED Course And Treament: Alcohol 192 Patient progresses more alert; appears clinically sober with steady gait. Disposition - Clinical Impression Clinical Impression: Alcohol ingestion - Patient ED Disposition Is Patient to be Admitted: No - Disposition Disposition: Routine/Home Disposition Time: 22:54 Condition: FAIR Instructions: Alcohol Intoxication (GEN)
== END 2016-09-08 23:46 | disposition home or self-care (01) ==
LOC: EDBD → H.ER 20:37
DX: F10.10 Alcohol abuse, uncomplicated (principal); F20.9 Schizophrenia, unspecified; F31.9 Bipolar disorder, unspecified; F41.9 Anxiety disorder, unspecified; I10 Essential (primary) hypertension

== ENCOUNTER 2016-09-10 17:55 | Emergency (ER) | payer MEDICAID ==
[2016-09-10 17:56] VITALS: BMI 25.0
[2016-09-10 18:11] VITALS: BP 132/100; PULSE 105; RESP 18; TEMP 98.5; O2SAT 98
[2016-09-10] MEDS ORDERED: Povidone Iodine Oint 10% Foilpak UD ONE (20:01)
--- NOTE | 2016-09-10 20:13 | ED PDOC ---
Lower Extremity Pain/Injury Time Seen by Provider: 09/10/16 19:51 Chief Complaint (Nursing): GI Problem History Per: Patient History/Exam Limitations: no limitations Onset/Duration Of Symptoms: Days Current Symptoms Are (Timing): Still Present Additional Complaint(s): Pt. arrives c/o of R foot callus for weeks, states that it gets painful to walk sometimes. Also c/o of L hip pain, states it hurts to walk occasionally. Also c /o of watery diarrhea x 1 day. Also c/o of dry, itchy skin. Past Medical History Vital Signs: Last Vital Signs Temp 98.5 F 09/10/16 17:56 Pulse 105 H 09/10/16 17:56 Resp 18 09/10/16 17:56 BP 132/100 H 09/10/16 17:56 Pulse Ox 98 09/10/16 17:56 - Medical History PMH: Anxiety, Back Problems (herniated disc), Bipolar Disorder, Depression, Hepatitis (C), HTN, Schizophrenia Denies: Diabetes, Fractures, HIV, Chronic Kidney Disease, Seizures, Sexually Transmitted Disease - Family History Family History: States: Unknown Family Hx, CAD - Immunization History Hx Tetanus Toxoid Vaccination: Yes Hx Influenza Vaccination: Yes Hx Pneumococcal Vaccination: Yes - Home Medications Home Medications: Ambulatory Orders Medication Instructions Recorded LORazepam [Ativan] 1 mg PO DAILY 07/22/16 QUEtiapine [SEROquel] 300 mg PO HS 07/22/16 Albuterol 0.083% [Albuterol 0.083% 2.5 mg IH Q6H PRN #15 neb 07/29/16 Inhal Naz (2.5 mg/3 ml) UD] oxyCODONE/Acetaminophen [Percocet 1 tab PO Q6H PRN #15 tab 07/29/16 5/325 mg Tab] Ondansetron ODT [Zofran ODT] 4 mg PO Q8 PRN #12 odt 08/10/16 Ciclopirox 0.77% [Loprox 0.77%] 30 gm EXT DAILY #1 tube 09/10/16 - Allergies Allergies/Adverse Reactions: Allergies Allergy/AdvReac Type Severity Reaction Status Date / Time No Known Allergies Allergy Verified 09/08/16 20:40 Physical Exam - Reviewed Nursing Documentation Reviewed: Yes - Physical Exam Appears: Positive for: Well (disheveled), Non-toxic, No Acute Distress Head Exam: Positive for: ATRAUMATIC, NORMAL INSPECTION, NORMOCEPHALIC Skin: Positive for: Normal Color, Warm, DRY Eye Exam: Positive for: EOMI, Normal appearance, PERRL ENT: Positive for: Normal ENT Inspection Neck: Positive for: Normal, Painless ROM Cardiovascular/Chest: Positive for: Regular Rate, Rhythm Respiratory: Positive for: CNT, Normal Breath Sounds Gastrointestinal/Abdominal: Positive for: Normal Exam, Bowel Sounds, Soft Back: Positive for: Normal Inspection Extremity: Positive for: Normal ROM, Other (R foot w/ callus to plantar surface , RLE w/ purpuric rash (old per pt.), scaling rash to feet bilaterally, onychomycosis). Negative for: Tenderness, Pedal Edema, Calf Tenderness, Capillary Refill Neurologic/Psych: Positive for: Alert, Oriented - ECG O2 Sat by Pulse Oximetry: 98 Medical Decision Making Medical Decision Making: Placed betadine on callus to dry it out, told patient to f/u w/ podiatry clinic for evaluation of callus and rash. No other purpuric rash on body, not concerned for abnl platelets (platelets on 09/02 showed platelets wnl). Disposition - Clinical Impression Clinical Impression: Callus, Tinea pedis - Patient ED Disposition Is Patient to be Admitted: No - Disposition Referrals: Podiatry Clinic [Outside] Disposition: Routine/Home Disposition Time: 20:15 Condition: STABLE Prescriptions: Ciclopirox 0.77% [Loprox 0.77%] 30 gm EXT DAILY #1 tube
== END 2016-09-10 20:25 | disposition home or self-care (01) ==
LOC: EDBD → H.ER 17:55
DX: B35.3 Tinea pedis (principal); L84 Corns and callosities; F20.9 Schizophrenia, unspecified; F31.9 Bipolar disorder, unspecified; F41.9 Anxiety disorder, unspecified; I10 Essential (primary) hypertension

== ENCOUNTER 2016-09-13 18:13 | Emergency (ER) | payer MEDICAID ==
[2016-09-13 18:13] VITALS: BMI 25.0
[2016-09-13 18:20] VITALS: PULSE 86; RESP 24; TEMP 97.1; O2SAT 100
--- NOTE | 2016-09-13 19:57 | ED PDOC ---
HPI: Psych/Substance Abuse Time Seen by Provider: 09/13/16 19:55 Chief Complaint (Nursing): Alcohol Ingestion Chief Complaint (Provider): etoh ED Caveat: Intoxicated History Per: Patient History/Exam Limitations: no limitations Additional Complaint(s): 55yo M in ED for eval of intoxication bought to ED by EMS-with slurred speech and unstable gait. Past Medical History Reviewed: Historical Data, Nursing Documentation, Vital Signs Vital Signs: Last Vital Signs Temp 97.1 F L 09/13/16 18:17 Pulse 86 09/13/16 18:17 Resp 24 09/13/16 18:17 BP Pulse Ox 100 09/13/16 18:17 - Medical History PMH: Anxiety, Back Problems (herniated disc), Bipolar Disorder, Depression, Hepatitis (C), HTN, Schizophrenia Denies: Diabetes, Fractures, HIV, Chronic Kidney Disease, Seizures, Sexually Transmitted Disease - Family History Family History: States: Unknown Family Hx, CAD - Immunization History Hx Tetanus Toxoid Vaccination: Yes Hx Influenza Vaccination: Yes Hx Pneumococcal Vaccination: Yes - Home Medications Home Medications: Ambulatory Orders Medication Instructions Recorded LORazepam [Ativan] 1 mg PO DAILY 07/22/16 QUEtiapine [SEROquel] 300 mg PO HS 07/22/16 Albuterol 0.083% [Albuterol 0.083% 2.5 mg IH Q6H PRN #15 neb 07/29/16 Inhal Naz (2.5 mg/3 ml) UD] oxyCODONE/Acetaminophen [Percocet 1 tab PO Q6H PRN #15 tab 07/29/16 5/325 mg Tab] Ondansetron ODT [Zofran ODT] 4 mg PO Q8 PRN #12 odt 08/10/16 Ciclopirox 0.77% [Loprox 0.77%] 30 gm EXT DAILY #1 tube 09/10/16 - Allergies Allergies/Adverse Reactions: Allergies Allergy/AdvReac Type Severity Reaction Status Date / Time No Known Allergies Allergy Verified 09/08/16 20:40 Review of Systems ROS Statement: Except As Marked, All Systems Reviewed And Found Negative Psych: Negative for: Psychosis Physical Exam - Reviewed Nursing Documentation Reviewed: Yes Vital Signs Reviewed: Yes - Physical Exam Appears: Positive for: No Acute Distress. Negative for: Non-toxic (intoxicated ) Head Exam: Positive for: ATRAUMATIC, NORMAL INSPECTION, NORMOCEPHALIC Skin: Positive for: Normal Color, Warm, DRY Eye Exam: Positive for: Normal appearance Neck: Positive for: Painless ROM Cardiovascular/Chest: Positive for: Regular Rate, Rhythm Respiratory: Positive for: CNT, Normal Breath Sounds Gastrointestinal/Abdominal: Positive for: Normal Exam, Bowel Sounds, Soft Back: Positive for: Normal Inspection Extremity: Positive for: Normal ROM Neurologic/Psych: Positive for: Alert, Oriented - ECG O2 Sat by Pulse Oximetry: 100 - Progress ED Course And Treament: while in ED and sked by EMS if he wanted to kill himself he said yes, however when asked by nursing staff he denies. Pt will get ciris evaluations , alcohol level land finger stick. Pt is stable in Ed and well appearing. Re-evaluation Time: 20:02 Condition: Re-examined Disposition - Clinical Impression Clinical Impression: Alcohol abuse with intoxication - Patient ED Disposition Is Patient to be Admitted: Transfer of Care Counseled Patient/Family Regarding: Need For Followup - Disposition Disposition: Routine/Home Disposition Time: 20:02 Condition: STABLE Patient Signed Over To: Marcela Bhatt
[2016-09-13 20:55] LABS: BASO # 0.1 K/uL (0.0-0.2); BASO % 0.8 % (0.0-2.0); EOS # 0.9 K/uL (0.0-0.7); EOS % 10.1 % (0.0-4.0); HEMATOCRIT 38.3 % (35.0-51.0); LYMPH # 3.4 K/uL (1.0-4.3); LYMPH % 37.7 % (20.0-40.0); MEAN CELL VOLUME 88.8 fl (80.0-94.0); MEAN CORPUSCULAR HEMOGLOBIN 29.3 pg (27.0-31.0); MEAN PLATELET VOLUME 7.5 fl (7.2-11.7); MONO % 10.9 % (0.0-10.0); NEUT # 3.7 K/uL (1.8-7.0); NEUT % 40.5 % (50.0-75.0); NRBC % 0.1 % (0.0-0.0); RED CELL DISTRIBUTION WIDTH 14.6 % (11.5-14.5); WHITE BLOOD COUNT 9.1 K/uL (4.8-10.8)
[2016-09-13 21:16] LABS: ALB/GLOB RATIO 1.3 (1.0-2.1); ALCOHOL SERUM 127 mg/dl (0-10); ALKALINE PHOSPHATASE 61 U/L (38-126); ALT/SGPT 29 U/L (21-72); AST/SGOT 32 U/L (17-59); BILIRUBIN,TOTAL 0.3 mg/dl (0.2-1.3); BLOOD UREA NITROGEN 12 mg/dl (9-20); CALCIUM 8.8 mg/dL (8.4-10.2); CARBON DIOXIDE 31 mmol/L (22-30); CHLORIDE 102 mmol/L (98-107); GFR AFRICAN-AMERICAN > 60; GLUCOSE,RANDOM 67 mg/dL (75-110); SODIUM 144 mmol/l (132-148); TOTAL PROTEIN 7.3 G/DL (6.3-8.2)
--- NOTE | 2016-09-13 22:37 | ED PDOC ---
- Laboratory Results Result Diagrams: 09/13/16 20:42 09/13/16 20:42 - ECG O2 Sat by Pulse Oximetry: 100 - Progress ED Course And Treament: Case endorsed to data analyst report writer from Joseph BORJAS pending labs, crisis eval 22:15 Patient awake, alert, oriented x3; ambulating steady gait. Patient evaluated by cinder worker; does not meet criteria for admission at this time as per Dr. Nurys Guadarrama for discharge. Disposition - Clinical Impression Clinical Impression: Alcohol abuse with intoxication, Schizoaffective disorder - POA Present On Arrival: None - Disposition Disposition: Routine/Home Disposition Time: 23:25 Condition: STABLE Instructions: Abuse of Alcohol (ED), Schizoaffective Disorder (ED)
== END 2016-09-13 23:26 | disposition home or self-care (01) ==
LOC: EDBD → H.ER 18:13
DX: F10.129 Alcohol abuse with intoxication, unspecified (principal); F25.9 Schizoaffective disorder, unspecified; F31.9 Bipolar disorder, unspecified; F41.9 Anxiety disorder, unspecified; I10 Essential (primary) hypertension

== ENCOUNTER 2016-09-14 04:18 | Observation (INO) | payer MEDICAID ==
[2016-09-14 04:18] VITALS: BMI 25.0
[2016-09-14] MEDS ORDERED: Naloxone 0.4 mg/ml Inj (Adult) IVP STA ×3 (04:53→05:22)
--- NOTE | 2016-09-14 04:57 | ED PDOC ---
HPI: Psych/Substance Abuse Chief Complaint (Provider): substance abuse History Per: EMS Additional History Per: EMS Additional Complaint(s): 50 y/o male brought in by EMS for eval of substance abuse. Patient discharged from ED a few hours ago. Patient is homeless. Patient sleeping but arousable to tactile stimuli. <Marcela Bhatt - Last Filed: 09/14/16 06:00> <Raz Francisco - Last Filed: 09/14/16 06:56> Time Seen by Provider: 09/14/16 04:19 Chief Complaint (Nursing): Alcohol Ingestion Past Medical History Reviewed: Historical Data, Nursing Documentation, Vital Signs - Medical History PMH: Anxiety, Back Problems (herniated disc), Bipolar Disorder, Depression, Hepatitis (C), HTN, Schizophrenia Denies: Diabetes, Fractures, HIV, Chronic Kidney Disease, Seizures, Sexually Transmitted Disease - Surgical History Surgical History: No Surg Hx - Family History Family History: States: Unknown Family Hx, CAD - Immunization History Hx Tetanus Toxoid Vaccination: Yes Hx Influenza Vaccination: Yes Hx Pneumococcal Vaccination: Yes <Marcela Bhatt - Last Filed: 09/14/16 06:00> <Raz Francisco - Last Filed: 09/14/16 06:56> - Home Medications Home Medications: Ambulatory Orders Medication Instructions Recorded LORazepam [Ativan] 1 mg PO DAILY 07/22/16 QUEtiapine [SEROquel] 300 mg PO HS 07/22/16 Albuterol 0.083% [Albuterol 0.083% 2.5 mg IH Q6H PRN #15 neb 07/29/16 Inhal Naz (2.5 mg/3 ml) UD] oxyCODONE/Acetaminophen [Percocet 1 tab PO Q6H PRN #15 tab 07/29/16 5/325 mg Tab] Ondansetron ODT [Zofran ODT] 4 mg PO Q8 PRN #12 odt 08/10/16 Ciclopirox 0.77% [Loprox 0.77%] 30 gm EXT DAILY #1 tube 09/10/16 - Allergies Allergies/Adverse Reactions: Allergies Allergy/AdvReac Type Severity Reaction Status Date / Time No Known Allergies Allergy Verified 09/08/16 20:40 Review of Systems ROS Statement: Except As Marked, All Systems Reviewed And Found Negative <Marcela Bhatt - Last Filed: 09/14/16 06:00> Physical Exam - Reviewed Nursing Documentation Reviewed: Yes Vital Signs Reviewed: Yes - Physical Exam Appears: Positive for: Well, Non-toxic, No Acute Distress Head Exam: Positive for: ATRAUMATIC, NORMAL INSPECTION, NORMOCEPHALIC Eye Exam: Positive for: EOMI. Negative for: PERRL (pinpoint pupils b/l) Cardiovascular/Chest: Positive for: Regular Rate, Rhythm Respiratory: Positive for: Normal Breath Sounds Gastrointestinal/Abdominal: Positive for: Normal Exam Extremity: Positive for: Normal ROM Neurologic/Psych: Positive for: Alert (responds to tactile stimuli) <Marcela Bhatt - Last Filed: 09/14/16 06:00> - Laboratory Results Result Diagrams: 09/14/16 06:06 09/14/16 06:06 <Raz Francisco - Last Filed: 09/14/16 06:56> ED OBSERVATION Date of observation admission: 09/14/16 Time of observation admission: 05:23 - Observation admission statement Patient is being placed in observation because:: substance abuse - Goals of Observation Goals of observation are:: observe for sobriety - Progress Note Progress Note: 09/14/16 05:23 Patient remains somnolent after narcan given. 2nd dose 0.4mg IV ordered 09/14/16 05:48 Dr. Francisco at bedside; Patient still with pinpoint pupils and somnolent after 2mg IV narcan given/ labs, CT head ordered <Marcela Bhatt - Last Filed: 09/14/16 06:00> Disposition - Disposition Disposition: Transfer of Care Disposition Time: 06:00 Patient Signed Over To: Raz Francisco Handoff Comments: pending labs, ct, re-eval <Marcela Bhatt - Last Filed: 09/14/16 06:00> <Raz Francisco - Last Filed: 09/14/16 06:56> - Clinical Impression Clinical Impression: Substance abuse - Disposition Condition: FAIR
[2016-09-14] MEDS ORDERED: Naloxone 0.4 mg/ml Inj (Adult) IVP ONE ×2 (05:20→05:32)
[2016-09-14] MEDS ORDERED: Naloxone 0.4 mg/ml Inj (Adult) ONE (05:28)
[2016-09-14] MEDS ORDERED: Sodium Chloride 0.9% 1,000 ML IV STA (06:11)
--- NOTE | 2016-09-14 06:14 | CT ---
EXAM: CT Head Without Intravenous Contrast CLINICAL HISTORY: 50 years old, male; Signs and symptoms; Altered mental status/memory loss; Additional info: AMS TECHNIQUE: Axial computed tomography images of the head/brain without intravenous contrast. This CT exam was performed using one or more of the following dose reduction techniques: automated exposure control, adjustment of the mA and/or kV according to patient size, and/or use of iterative reconstruction technique. Coronal and sagittal reformatted images were created and reviewed. COMPARISON: CT - HEAD W/O CONTRAST 05/11/2016 12:12:42 AM FINDINGS: Brain: Mild atrophy. No intracranial hemorrhage. No mass. No definite edema. Ventricles: No hydrocephalus. Bones/joints: No acute fracture. Soft tissues: Unremarkable. Sinuses: [id number] mucosal thickening of maxillary sinuses. Moderate mucosal thickening of ethmoid sinuses. Mild focal mucosal thickening of frontal sinuses. Minimal mucosal sphenoid sinuses. Mastoid air cells: No mastoid effusion. Orbits: Unremarkable as visualized. IMPRESSION: 1. No acute intracranial abnormality. 2. Sinus disease. 3. Incidental/non-acute findings are described above.
[2016-09-14 06:20] LABS: BASO # 0.1 K/uL (0.0-0.2); EOS # 0.5 K/uL (0.0-0.7); EOS % 9.9 % (0.0-4.0); HEMATOCRIT 37.8 % (35.0-51.0); LYMPH # 2.5 K/uL (1.0-4.3); LYMPH % 46.1 % (20.0-40.0); MEAN CELL VOLUME 88.4 fl (80.0-94.0); MEAN CORPUSCULAR HEMOGLOBIN 29.2 pg (27.0-31.0); MEAN CORPUSCULAR HGB CONC 33.1 g/dL (33.0-37.0); MEAN PLATELET VOLUME 7.5 fl (7.2-11.7); MONO # 0.4 K/uL (0.0-0.8); MONO % 8.1 % (0.0-10.0); NEUT # 1.9 K/uL (1.8-7.0); NEUT % 34.9 % (50.0-75.0); NRBC % 0.1 % (0.0-0.0); RED CELL DISTRIBUTION WIDTH 14.7 % (11.5-14.5); WHITE BLOOD COUNT 5.3 K/uL (4.8-10.8)
[2016-09-14 06:29] LABS: ALB/GLOB RATIO 1.3 (1.0-2.1); ALKALINE PHOSPHATASE 63 U/L (38-126); ALT/SGPT 27 U/L (21-72); AST/SGOT 32 U/L (17-59); BILIRUBIN,TOTAL 0.2 mg/dl (0.2-1.3); BLOOD UREA NITROGEN 11 mg/dl (9-20); CALCIUM 8.7 mg/dL (8.4-10.2); CARBON DIOXIDE 29 mmol/L (22-30); CHLORIDE 106 mmol/L (98-107); GFR AFRICAN-AMERICAN > 60; GLUCOSE,RANDOM 94 mg/dL (75-110); POTASSIUM 3.9 MMOL/L (3.6-5.0); SODIUM 146 mmol/l (132-148); TOTAL PROTEIN 7.4 G/DL (6.3-8.2)
[2016-09-14 06:38] LABS: PARTIAL THROMBOPLASTIN TIME 33.6 Seconds (25.6-37.1)
--- NOTE | 2016-09-14 06:51 | ED PDOC ---
- Laboratory Results Result Diagrams: 09/14/16 06:06 09/14/16 06:06 - ECG Pulse Ox Interpretation: Normal Medical Decision Making Medical Decision Making: TIME: 452 Initial plan: --EKG --DRUG SCREEN, URINE --EKG-ED --CHEST PORTABLE X-RAY --NALOXONE 2MG --NALOXONE 0.2MG --NALOXONE 0.4MG --NALOXONE 0.4MG --SODIUM CHLORIDE 1,000ML --GLUCOSE --MEHTA --ADMIT --URINALYSIS Time: 599 Transfer of care from [facility]. Patient seen and examined at bedside, belongings went through, patient has prescription of xanax prescribed on 09/08 for 30 pill of which 14 remain. Also had suspicious drugs, possibly heroin, in his bag. Patient has pinpoint pupils but not bradypneic, however given anatomy (short chin, small neck) patient has sonorous breathing. Placed nasal trumpet with improvement in breathing. Patient w/ neg rectal temp, neg lactate, neg CT and neg bloodwork thus far. Pending UDS, which will likely demonstrate polysubstance abuse with alcohol intoxication as well. Patient signed out to Dr. Aguirre pending sobriety. Scribe Attestation: Documented by Bhargavi Arndt, acting as a scribe for Raz Francisco M.D. MD Scribe Attestation: All medical record entries made by the Scribe were at my direction and personally dictated by me. I have reviewed the chart and agree that the record accurately reflects my personal performance of the history, physical exam, medical decision making, and the department course for this patient. I have also personally directed, reviewed, and agree with the discharge instructions and disposition. Disposition - Clinical Impression Clinical Impression: Substance abuse - POA Present On Arrival: None - Disposition Disposition: Transfer of Care Disposition Time: 07:00 Condition: FAIR Patient Signed Over To: Brayan Aguirre Handoff Comments: pending sobriety. - PA / QUALITY PROCESS ENGINEER / Resident Statement / has reviewed & agrees with the documentation as recorded.
[2016-09-14 07:09] LABS: RBC URINE < 1 /hpf (0-3); URINE BACTERIA RARE (<OCC); URINE BILIRUBIN NEGATIVE (NEGATIVE); URINE BLOOD NEGATIVE (NEGATIVE); URINE COLOR STRAW (YELLOW); URINE GLUCOSE (UA) NEG (Normal); URINE KETONE NEGATIVE (NEGATIVE); URINE LEUKOCYTE ESTERASE NEG Leu/uL (Negative); URINE PROTEIN NEGATIVE (NEGATIVE); URINE UROBILINOGEN 0.2-1.0 mg/dL (0.2-1.0); WBC URINE < 1 /hpf (0-5)
[2016-09-14 07:15] VITALS: TEMP 96.6
--- NOTE | 2016-09-14 07:33 | ED PDOC ---
- Laboratory Results Result Diagrams: 09/14/16 06:06 09/14/16 06:06 Interpretation Of Abn Labs: coccaine - ECG O2 Sat by Pulse Oximetry: 97 - Radiology X-Ray: Read By Radiologist X-Ray Interpretation: No Acute Disease - CT Scan/US ct Other Rad Studies (CT/US): Read By Radiologist Other Rad Interpretation: no acute - Progress ED Course And Treament: 1500: Stable. Ambulating with no issues. Tolerated PO. Urinating with no issues. Fu with clinic. Medical Decision Making Medical Decision Making: Time: 0700 Patient signed out by Dr. Francisco pending sobriety Scribe Attestation: Documented by Funmilayo Herbert acting as a scribe for Brayan Aguirre MD MD Scribe Attestation: All medical record entries made by the Scribe were at my direction and personally dictated by me. I have reviewed the chart and agree that the record accurately reflects my personal performance of the history, physical exam, medical decision making, and the department course for this patient. I have also personally directed, reviewed, and agree with the discharge instructions and disposition. Disposition - Clinical Impression Clinical Impression: Substance abuse - POA Present On Arrival: None - Disposition Disposition: Routine/Home Disposition Time: 12:20 Condition: FAIR
[2016-09-14 11:26] VITALS: BP 148/100; PULSE 90; RESP 20
--- NOTE | 2016-09-14 13:27 | RAD ---
HISTORY: Altered mental status, possible substance abuse COMPARISON: 04/29/2016. FINDINGS: LUNGS: No active pulmonary disease. PLEURA: No significant pleural effusion identified, no pneumothorax apparent. CARDIOVASCULAR: No radiographic findings to suggest acute or significant cardiovascular disease. OSSEOUS STRUCTURES: No significant abnormalities. VISUALIZED UPPER ABDOMEN: Normal. OTHER FINDINGS: None. IMPRESSION: No active disease. No significant interval change compared to the prior examination(s).
[2016-09-14 15:01] VITALS: O2SAT 97
--- NOTE | 2016-09-14 16:50 | CARD ---
APPROVED REPORT EKG Measurement Heart [id number] <Conclusion> Normal sinus rhythm Normal ECG
== END 2016-09-14 15:37 | disposition home or self-care (01) ==
LOC: H.ER 04:18 → EDBD 04:18 → H.EROBSV 05:22
PROVIDERS: ADMIT Emergency Medicine; ATTEND Emergency Medicine
DX: F14.10 Cocaine abuse, uncomplicated (principal); F10.129 Alcohol abuse with intoxication, unspecified; Y90.6 Blood alcohol level of 120-199 mg/100 ml; F20.9 Schizophrenia, unspecified; F31.9 Bipolar disorder, unspecified; I10 Essential (primary) hypertension; Z59.0 Homelessness

== ENCOUNTER 2016-09-14 23:24 | Observation (INO) | payer MEDICAID ==
[2016-09-14 23:24] VITALS: BMI 25.0
--- NOTE | 2016-09-15 01:21 | ED PDOC ---
HPI: Psych/Substance Abuse Time Seen by Provider: 09/14/16 23:25 Chief Complaint (Nursing): Alcohol Ingestion Chief Complaint (Provider): alcohol intoxication History Per: Patient History/Exam Limitations: no limitations Onset/Duration Of Symptoms: Mins Current Symptoms Are (Timing): Still Present Additional Complaint(s): 50yo male presents to the ED for evaluation of alcohol intoxication. Patient denies any medical or psychiatric complaints. Past Medical History Reviewed: Historical Data, Nursing Documentation, Vital Signs - Medical History PMH: Anxiety, Back Problems (herniated disc), Bipolar Disorder, Depression, Hepatitis (C), HTN, Schizophrenia Denies: Diabetes, Fractures, HIV, Chronic Kidney Disease, Seizures, Sexually Transmitted Disease - Surgical History Surgical History: No Surg Hx - Family History Family History: States: CAD - Immunization History Hx Tetanus Toxoid Vaccination: Yes Hx Influenza Vaccination: Yes Hx Pneumococcal Vaccination: Yes - Home Medications Home Medications: Ambulatory Orders Medication Instructions Recorded LORazepam [Ativan] 1 mg PO DAILY 07/22/16 QUEtiapine [SEROquel] 300 mg PO HS 07/22/16 Albuterol 0.083% [Albuterol 0.083% 2.5 mg IH Q6H PRN #15 neb 07/29/16 Inhal Naz (2.5 mg/3 ml) UD] oxyCODONE/Acetaminophen [Percocet 1 tab PO Q6H PRN #15 tab 07/29/16 5/325 mg Tab] Ondansetron ODT [Zofran ODT] 4 mg PO Q8 PRN #12 odt 08/10/16 Ciclopirox 0.77% [Loprox 0.77%] 30 gm EXT DAILY #1 tube 09/10/16 - Allergies Allergies/Adverse Reactions: Allergies Allergy/AdvReac Type Severity Reaction Status Date / Time No Known Allergies Allergy Verified 09/08/16 20:40 Review of Systems ROS Statement: Except As Marked, All Systems Reviewed And Found Negative Physical Exam - Reviewed Nursing Documentation Reviewed: Yes Vital Signs Reviewed: Yes - Physical Exam Appears: Positive for: Well (appears intoxicated ), No Acute Distress Head Exam: Positive for: ATRAUMATIC, NORMAL INSPECTION, NORMOCEPHALIC Skin: Positive for: Normal Color, Warm, Dry Eye Exam: Positive for: Normal appearance, EOMI, PERRL ENT: Positive for: Normal ENT Inspection Neck: Positive for: Normal, Painless ROM, Supple Cardiovascular/Chest: Positive for: Regular Rate, Rhythm. Negative for: Murmur , Tachycardia Respiratory: Positive for: Normal Breath Sounds. Negative for: Wheezing, Respiratory Distress Gastrointestinal/Abdominal: Positive for: Normal Exam, Soft. Negative for: Tenderness Back: Positive for: Normal Inspection Extremity: Positive for: Normal ROM. Negative for: Deformity, Swelling Neurologic/Psych: Positive for: Alert, Oriented Medical Decision Making Medical Decision Makin: Impression: alcohol intoxication Plan: alc serum accucheck ED obs reassess Scribe Attestation: Documented by Cha Barton acting as a scribe for Raz Francisco MD. Provider Scribe Attestation: All medical record entries made by the Scribe were at my direction and personally dictated by me. I have reviewed the chart and agree that the record accurately reflects my personal performance of the history, physical exam, medical decision making, and the department course for this patient. I have also personally directed, reviewed, and agree with the discharge instructions and disposition. ED OBSERVATION Date of observation admission: 09/14/16 Time of observation admission: 23:37 - Observation admission statement Patient is being placed in observation because:: alcohol intoxication - Goals of Observation Goals of observation are:: pending sobriety - Progress Note Progress Note: 09/15/16 03:00 Pt. awake and alert, steady gait. Stable for discharge. Disposition - Clinical Impression Clinical Impression: ETOH abuse - Disposition Disposition Time: 03:00 Condition: STABLE
[2016-09-15 03:40] VITALS: BP 136/88; PULSE 84; RESP 16; TEMP 97.9; O2SAT 97
== END 2016-09-15 03:00 | disposition home or self-care (01) ==
LOC: H.ER 23:24 → H.EROBSV 23:37
PROVIDERS: ADMIT Emergency Medicine; ATTEND Emergency Medicine
DX: F10.129 Alcohol abuse with intoxication, unspecified (principal); F20.9 Schizophrenia, unspecified; F31.9 Bipolar disorder, unspecified; I10 Essential (primary) hypertension; F32.9 Major depressive disorder, single episode, unspecified; F41.9 Anxiety disorder, unspecified; Z86.19 Personal history of other infectious and parasitic diseases; F17.210 Nicotine dependence, cigarettes, uncomplicated